=== PATIENT | female | born 1970 | race African-American/Black ===

== ENCOUNTER 2018-05-07 13:29 | Emergency (ER) | payer OTHER ==
[2018-05-07 13:54] VITALS: BP 172/69
[2018-05-07] MEDS ORDERED: KETOROLAC TROMETHAMINE 60 MG/2 ML SDV IM ONE (14:28)
[2018-05-07] MEDS ORDERED: DIAZEPAM INJ 10 MG/2 ML DISP.SYRIN IM ONE (14:28)
--- NOTE | 2018-05-07 14:35 | ER Document Report ---
HPI - HPI Time Seen by Provider: 05/07/18 14:07 Pain Level: 4 Notes: Patient is a 48-year-old female who presents with chief complaint of left-sided neck pain that radiates down into her scapular area. Patient reports pain has been ongoing and intermittent over the last several years. Patient reports over the last 3 days it has increased significantly. She denies any recent injury or trauma to the area. - REPRODUCTIVE Reproductive: DENIES: : Past Medical History - General Information source: Patient - Social History Smoking Status: Never Smoker Frequency of alcohol use: None Drug Abuse: None Family History: Reviewed & Not Pertinent - Medical History Medical History: Negative Surgical Hx: Negative - Immunizations Immunizations up to date: Yes Vertical Provider Document - CONSTITUTIONAL Notes: PHYSICAL EXAMINATION: GENERAL: Well-appearing, well-nourished and in no acute distress. HEAD: Atraumatic, normocephalic. EYES: Pupils equal round extraocular movements intact, conjunctiva are normal. ENT: Nares patent NECK: Normal range of motion LUNGS: No respiratory distress Musculoskeletal: Normal range of motion, tenderness to palpation to left side of neck that extends down into the trapezius muscles on the left side. No vertebral tenderness, no step-off or deformity. NEUROLOGICAL: Normal speech, normal gait. PSYCH: Normal mood, normal affect. SKIN: Warm, Dry, normal turgor, no rashes or lesions noted. - INFECTION CONTROL TRAVEL OUTSIDE OF THE [place] IN LAST 30 DAYS: No Course - Re-evaluation Re-evalutation: 05/07/18 14:44 History and examination is most consistent with musculoskeletal strain/torticollis. Patient has full range of motion when turning her head to the right but limited range of motion when turning head to the left. Patient states she takes cyclobenzaprine at home which usually relieves her pain, states she has tried taking it with no relief over the last 3 days. Will give patient IM Toradol and IM Valium and reevaluate. 05/07/18 15:54 Patient reports significant improvement of her pain after administration of medications. Will prescribe patient a short course of these medications and patient will call her PCP for follow-up this week. - Vital Signs Vital signs: Temp Pulse Resp BP Pulse Ox 98.2 F 60 18 172/69 H 100 05/07/18 13:52 05/07/18 13:52 05/07/18 13:52 05/07/18 13:52 05/07/18 13:52 Discharge - Discharge Clinical Impression: Torticollis Condition: Stable Disposition: HOME, SELF-CARE Additional Instructions: Torticollis You have torticollis, often called "wry neck." This is due to spasm of neck muscles -- locking the neck into a crooked position. Many different problems can lead to torticollis, such as a minor injury, sleeping with tension on the neck, or inflammation in the glands of the neck. Torticollis is usually treated with heat to relax the neck muscles, but the physician may recommend cold packs if a minor injury is suspected as the cause. Muscle relaxing and antiinflammatory medicine are often prescribed. You may need a neck collar to support your head. Improvement is usually rapid. Usually, the neck can be moved fully within two days, although some pain may persist for a few weeks. Call the doctor at once if you worsen, or if you develop high fever, severe headache, numbness or weakness, or other alarming symptoms. Prescriptions: Ketorolac Tromethamine [Toradol 10 mg Tablet] 10 mg PO Q6HP PRN #20 tablet PRN Reason: Diazepam [Valium 5 mg Tablet] 5 mg PO QIDP PRN #10 tablet PRN Reason: Forms: Return to Work
== END 2018-05-07 16:31 | disposition home or self-care (01) ==
LOC: ER 13:29
DX: M43.6 Torticollis (principal); M54.2 Cervicalgia
CPT/HCPCS: 99283; 96372; J3360; J1885